=== PATIENT | female | born 1950 | race Caucasian/White ===

== ENCOUNTER → 2018-08-29 | Outpatient (CLI) | payer MEDICARE ==
[~2018-08-29] MED LIST: ACET-704 PO; ACET500T68 PO; CYCL10TA2 PO; DOCU-109 PO; IBUP-1027 PO; LEVO112T4 PO; PANT20TA2 PO; [UNRECOGNIZED DRUG - OTHER] PO
--- NOTE | 2018-08-29 13:49 | RAD ---
EXAM: Lumbar spine MRI without contrast. HISTORY: Lower back pain and left lower extremity radiculopathy. TECHNIQUE: Multiplanar, multisequence magnetic resonance imaging of the lumbar spine was performed without contrast. COMPARISON: None. FINDINGS: There is mild lumbar scoliosis. There is minimal grade 1 anterolisthesis of L3 on L4, measuring 2 mm. There is diffusely heterogeneous marrow signal intensity likely due to the combination of fatty marrow replacement and bone demineralization. There are few superimposed osseous hemangiomas. There is no acute or subacute fracture. There is no suspicious osseous lesion. The conus terminates at L1-L2. At L1-L2, there is no stenosis. At L2-L3, there is no stenosis. At L3-L4, there is a broad-based left foraminal to lateral disc protrusion and a right foraminal to lateral disc osteophyte complex superimposed on a disc bulge and right lateral predominant endplate osteophytosis. There is mild bilateral facet arthropathy. There is hypertrophy of ligamentum flavum. There is minimal grade 1 anterolisthesis. There is mild bilateral foraminal stenosis. There is mild central canal stenosis. At L4-L5, there is no stenosis. At L5-S1, there is no stenosis. IMPRESSION: 1. Degenerative change at L3-L4, resulting in mild bilateral foraminal and central canal stenosis. 2. Mild scoliosis and minimal grade 1 anterolisthesis of L3 on L4. Electronically signed by: Maribel Orozco MD (08/29/2018 1:46 PM) [facility]
== END | disposition home or self-care (01) ==
LOC: MRI 12:37
PROVIDERS: ATTEND Nurse Practitioner Family
DX: M47.816 Spondylosis without myelopathy or radiculopathy, lumbar region (principal); M48.061 Spinal stenosis, lumbar region without neurogenic claudication; M51.26 Other intervertebral disc displacement, lumbar region; M41.86 Other forms of scoliosis, lumbar region; M25.78 Osteophyte, vertebrae; D18.09 Hemangioma of other sites
CPT/HCPCS: 72148

== ENCOUNTER 2018-09-14 09:04 | Observation (INO) | payer MEDICARE ==
--- NOTE | 2018-09-13 15:29 | PREOP HP ---
DATE OF SERVICE: 09/14/2018. HISTORY OF PRESENT ILLNESS: The patient is a pleasant 67-year-old woman who is having difficulty with low back pain and pain, which radiates down her left anterior lateral thigh and leg. She also notices bilateral foot numbness, which she describes as a burning, shooting discomfort in addition to numbness. Her back and left leg pain began about 1-1/2 years ago. She rates her pain as a 4/10 generally. Standing or lying down increases her pain. Sitting in a firm chair helps her. She has had epidural steroid injections for this as well as physical therapy for 3 months in the spring. She relates that if she stands for any length of time or stands and walks, she develops more significant back pain on the left and pain, which radiates into her left hip and then down her left lateral thigh and leg. Sitting gives her virtual immediate relief. She has had difficulty at night when she lies down with back and left leg pain. PAST MEDICAL HISTORY: Cancer, cold sores and fever blisters, headaches or migraines, kidney stones, mitral valve prolapse, thyroid disease, tonsillitis, bleeding ulcer. PAST SURGICAL HISTORY: T and A, hysterectomy, bladder suspension, cholecystectomy, sinus surgery, kidney stones. FAMILY HISTORY: Cancer, diabetes, heart disease. SOCIAL HISTORY: Retired. . Exercises daily. Denies substance abuse. Drinks alcohol 1 or 2 per day. Drinks coffee, tea daily. ALLERGIES: TO SULFA AND MORPHINE. CURRENT MEDICATIONS: Levothyroxine, Advil, Tylenol, Flexeril. REVIEW OF SYSTEMS: A 12-point review of systems was obtained and is noncontributory except for that mentioned above. PHYSICAL EXAMINATION: NEUROSURGERY EXAMINATION: GENERAL APPEARANCE: Alert, pleasant, no acute distress. HEAD: Normocephalic and atraumatic. SKIN: Warm and dry. MUSCULOSKELETAL: Lumbar paraspinal muscle bulk is normal, restricted range of motion of lumbar spine, [id number] tenderness of the lower lumbar spine with palpation, normal range of motion of the lower extremities bilaterally. EXTREMITIES: No clubbing, cyanosis or edema. NEUROLOGIC: Alert and oriented x 3, normal recent and remote memory, strength 5/5 in bilateral lower extremities, sensory was intact to light touch in bilateral lower extremities. Reflexes were present and symmetric in lower extremities bilaterally except for absent ankle jerks, positive straight leg raising on the left with back and left leg pain relieved by Lasegue's maneuver, negative straight leg raising on the right, normal gait. IMAGING: I reviewed lumbar MRI scan. The principal abnormalities are at L3-L4 and there are small grade 1 anterolisthesis as well as central canal and bilateral foraminal narrowing. There is central and left-sided foraminal disc protrusion. ASSESSMENT/PLAN: The problems at L3-L4 are responsible for her back and left leg pain. At this point, my recommendation is that she consider laminectomy at this level for the stenosis and left-sided lumbar microdiskectomy to deal with the disc protrusion to see if this will help her. I did discuss this with her in detail. She would like to go ahead. We will make the arrangements. ARAM QUINN MD DR: ANNETTA/yahaira JOB#: [id number] / [id number] MICHELLE
[~2018-09-14] VITALS: Ht 167.6 cm; Wt 68.0 kg
[2018-09-14] VITALS (9 sets, daily range): BP systolic 110–132; BP diastolic 64–81
[~2018-09-14 09:04] MED LIST changes: -ACET-704 PO; +BACITRACIN 50,000 UNIT in IV NORMAL SALINE 1000ML BAG 1,000 ML IRR ONE; +BUPIVAC MPF-EPI 0.5%-1:200000 30 ML VIAL. ONE; -DOCU-109 PO; +GELATIN SPONGE SIZE 100. ONE; +IV RINGERS,LACTATED 1000ML 1,000 ML IV SCH; +KETOROLAC 60 MG/2 ML INJ FOR OR. ONE; +LIDOCAINE 1% PF 2 ML VIAL. ID PRN; +ONDANSETRON PF 4 MG/2 ML VIAL. IV PRN; +PROCHLORPERAZINE 10 MG/2 ML VIAL. IV PRN; +THROMBIN TOPICAL 20,000 UNIT SPRAY.SYRN KIT TP ONE; +fentaNYL PF VIAL 100 MCG/2 ML VIAL IV PRN
[2018-09-14] MEDS ORDERED: DEXAMETHASONE SOD PHOS 20 MG/5 ML VIAL. ONE (10:30)
[2018-09-14] MEDS ORDERED: ONDANSETRON PF 4 MG/2 ML VIAL. ONE (10:30)
[2018-09-14] MEDS ORDERED: REMIFENTANIL 2 MG VIAL. IV ONE (10:30)
[2018-09-14] MEDS ORDERED: PROPOFOL 20 ML IV ONE (10:30)
[2018-09-14] MEDS ORDERED: LIDOCAINE 2% PF 5 ML VIAL. ONE (10:30)
[2018-09-14] MEDS ORDERED: ROCURONIUM 50 MG/5 ML VIAL. ONE (10:31)
[2018-09-14] MEDS ORDERED: PROPOFOL 50 ML IV ONE ×2 (10:35→13:36)
[2018-09-14] MEDS ORDERED: MIDAZOLAM HCL/PF 2 MG/2 ML VIAL. ONE (11:40)
[2018-09-14] MEDS ORDERED: PHENYLEPHRINE in 0.9% NACL PF 1 MG/10 ML SYRINGE. IV ONE (12:37)
[2018-09-14] MEDS ORDERED: PHENYLEPHRINE 10 MG/ML VIAL. ONE (13:10)
[2018-09-14] MEDS ORDERED: NEOSTIGMINE METHYLSULFATE 5 MG/5 ML SYRINGE. ONE (13:54)
[2018-09-14] MEDS ORDERED: GLYCOPYRROLATE 1 MG/5 ML VIAL. ONE (13:54)
[2018-09-14] MEDS ORDERED: DESFLURANE > 120 MINUTES IH ONE (13:55)
[2018-09-14] MEDS: POTASSIUM CL 20MEQ D5-0.45NACL 1,000 ML IV SCH (14:27)
[2018-09-14] MEDS ORDERED: CYCLOBENZAPRINE 10 MG TABLET. PO PRN (14:30)
[2018-09-14] MEDS ORDERED: IBUPROFEN 400 MG TABLET. PO PRN (14:30)
[2018-09-14] MEDS ORDERED: ACETAMINOPHEN 325 MG TABLET. PO PRN (14:30)
[2018-09-14] MEDS ORDERED: HYDROcodone/APAP 5/325MG 1 TAB TABLET PO PRN (14:30)
[2018-09-14] MEDS ORDERED: fentaNYL PF VIAL 100 MCG/2 ML VIAL IV PRN (14:30)
[2018-09-14] MEDS ORDERED: NALOXONE 0.4 MG/ML VIAL. IV PRN (14:30)
[2018-09-14] MEDS ORDERED: MAGNESIUM HYDROXIDE 2,400 MG/30 ML ORAL.SUSP. PO PRN (14:30)
[2018-09-14] MEDS ORDERED: ONDANSETRON PF 4 MG/2 ML VIAL. IV PRN (14:30)
[2018-09-14] MEDS ORDERED: diphenhydrAMINE HCL 25 MG CAPSULE PO PRN (14:30)
[2018-09-14] MEDS ORDERED: CALCIUM CARBONATE 500 MG TAB.CHEW PO PRN (14:30)
[2018-09-14] MEDS ORDERED: 0.9 % SODIUM CHLORIDE 10 ML DISP.SYRIN. IV PRN (14:30)
[2018-09-14] MEDS ORDERED: MAG HYDROX/ALUMINUM HYD/SIMETH 30 ML ORAL.SUSP PO PRN (14:30)
[2018-09-14] MEDS ORDERED: ACETAMINOPHEN 1000 MG PO PRN (14:30)
--- NOTE | 2018-09-14 14:41 | OP ---
DATE OF SURGERY: 09/14/2018 PREOPERATIVE DIAGNOSES: Lumbar spinal stenosis, L3-L4 with left-sided bulging disc, L3-L4. POSTOPERATIVE DIAGNOSES: Lumbar spinal stenosis, L3-L4 with subligamentous disc herniation, left L3-L4. OPERATION PERFORMED: Hemilaminotomy/left direct laminectomy L3-L4 with lumbar microdiscectomy, left L3-L4. The operation was done with EMG monitoring, fluoroscopy, microscopic dissection. SURGEON: Dar Quinn M.D. DIRECTOR GEOPHYSICAL LABORATORY: CHARLEY Resendiz assisted with the surgery. She assisted with the exposure, the microdiscectomy and decompression, laminectomy and closure. OPERATIVE INDICATIONS: The patient is a pleasant 67-year-old woman who had developed intractable back and left leg pain. She was found to have the above-mentioned findings on imaging studies. She did fail conservative measures and I recommended lumbar microsurgery at this level. I spoke with her about the surgery, the risks, technique and expected postoperative course, and she wished to go ahead. DESCRIPTION OF PROCEDURE: Following general endotracheal anesthesia, the patient was positioned prone on the Shaji table. Lumbar region prepped and draped in standard fashion. JOSH hose and AV impulse boots were applied for DVT prophylaxis. The microscope was draped. Fluoroscopy was draped and brought into the field. Monitoring was established. Ancef 2 grams was given less than 1 hour prior to the initiation of the surgery. Using fluoroscopic guidance, an incision was made over the L3-L4 interspace. I dissected down through skin and subcutaneous tissue, reflected the paraspinal muscles and placed a Clarinda micro disc retractor. I brought in the high speed air drill, burred down a hemilaminotomy and then I trimmed away the thickened ligamentum flavum from medial to lateral and performed a generous partial foraminotomy. I then tilted the patient away and drilled across the base of spinous process across to the contralateral side and I removed the fatty tissue in the midline and performed a laminectomy. I then worked laterally and peeled away the thickened ligamentum flavum and carried my exposure laterally and peeled the ligamentum flavum away just lateral to the lateral edge of the dura. Working superiorly, there was an early takeoff of the L4 root and I could visualize this. Inferiorly, there was soft disc bulging and I incised the ligament annulus and there was subligamentous disc, which I have removed with micropituitary and then I entered into the disc space and performed discectomy with pituitary rongeurs. I worked medially and laterally and assured myself that the entire region was well decompressed. I did explore along the course of the L4 root with the [place] [place] [facility] and assured myself that the root was free.I removed the retractor and irrigated. I obtained perfect hemostasis in the muscle. I closed the wound in layers with absorbable suture. The skin was closed with 4.0 subcuticular stitch. The patient was awakened and taken to recovery room with normal strength in the lower extremities. I felt the surgery went very well. DAR QUINN MD DR: ANNETTA/yahaira JOB#: [id number] / [id number] MICHELLE
[2018-09-14] MEDS ORDERED: fentaNYL PF VIAL 100 MCG/2 ML VIAL ONE (14:45)
[2018-09-14] MEDS: fentaNYL PF VIAL 100 MCG/2 ML VIAL IV PRN ×4 (14:47→16:30)
[2018-09-14] MEDS ORDERED: PANTOPRAZOLE 40 MG TABLET.DR. PO PRN (16:00)
--- NOTE | 2018-09-14 16:30 | NUR ---
Rec'd from PACU per cart, transferred to bed, dressing to lumbar area clean, dry & intact, bilateral JOSH hose & NITA in place, IVF infusing into right dorsal hand, states discomfort level 6/10, ice pack to back for comfort, oriented to surroundings, family members at bedside, call light within reach
[2018-09-14] MEDS: HYDROcodone/APAP 5/325MG 1 TAB TABLET PO PRN ×2 (17:56→21:43)
--- NOTE | 2018-09-14 18:30 | NUR ---
Ambulated in hallway from room 450 to 456, tolerated well.
[2018-09-14] MEDS ORDERED: [UNRECOGNIZED DRUG - OTHER] PO SCH (21:00)
[2018-09-14] MEDS: METHOCARBAMOL 750 MG TABLET PO SCH (21:43)
[2018-09-14] MEDS: DOCUSATE SODIUM 100 MG CAPSULE. PO SCH (21:44)
[2018-09-15 03:00] VITALS: BP 111/66
[2018-09-15] MEDS: POTASSIUM CL 20MEQ D5-0.45NACL 1,000 ML IV SCH (03:47)
[2018-09-15 06:38] VITALS: BP 123/70
[2018-09-15] MEDS ORDERED: LEVOTHYROXINE 112 MCG TABLET PO SCH (07:30)
[2018-09-15] MEDS: METHOCARBAMOL 750 MG TABLET PO SCH (08:34)
[2018-09-15] MEDS: DOCUSATE SODIUM 100 MG CAPSULE. PO SCH (08:34)
[2018-09-15] MEDS ORDERED: DOCU-109 PO (10:01)
--- NOTE | 2018-09-15 10:02 | DISCH ---
DISCHARGE INSTRUCTIONS Condition on Discharge Condition on Discharge: Stable Activity After Discharge Activity Instructions for Disc: Activity as tolerated, Avoid exertion, Walk in house Other activity instructions: ambulation only exercise permitted; gradually increase time and distance Bathing Instructions: Shower-keep dressing dry, No Tub Bath until see Lifting Instructions after Dis: No heavy lifting, No pulling or pushing, Do not lift >10 pounds Exercise Instruction after Dis: Progress as tolerated Driving Instructions after Dis: No driving for 2 weeks Weight Bearing Status after Di: No restrictions, Full weight bearing, As tolerated Diet after Discharge Additional Diet Restrictions: resume home diet Diet Texture: Regular Swallowing Supervision: None needed Wound Incision Care Wound/Incision Care: Ice to area for comfort, Keep wound/cast CDI, Change dressing Other wound/incision instructi: may shower 48 hrs after surgery; NO direct water to incision or antibiotic Wound Care Equipment: Dressings Checks after Discharge DC Comment: increase fruits, vegetables attempt to have a BM every 2-3 days Contacting the DRIsidro after DC Call your doctor for: Concerns you may have Follow-Up Follow up with: call [phone] for a month after surgery with Dr. Quinn Follow Up With: primary md for incisional check Treatment/Equipment after DC Adaptive Equipment Issued: None ARAM QUINN MD Sep 15, 2018 10:02
[2018-09-15] MEDS ORDERED: ACET-704 PO (10:04)
[2018-09-15] MEDS ORDERED: ACETAMINOPHEN/CODEINE 300/30MG TABLET. PO ONE (10:45)
--- NOTE | 2018-09-15 11:45 | PDOC ---
PROGRESS NOTES Subjective Subjective POD #1 up ambulating with PT reports significant improvement in left leg pain Objective Objective Vital Signs Date Time Temp Pulse Resp B/P (MAP) Pulse Ox O2 Delivery O2 Flow Rate FiO2 09/15/18 10:07 Room Air 09/15/18 07:18 20 09/15/18 06:38 98.6 82 123/70 (87) 98 98.6 09/14/18 20:00 8.0 Intake and Output 09/15/18 07:00 Intake Total 2960 ml Output Total 1210 ml Balance 1750 ml Intake Oral 910 ml IV Total 2050 ml Output Urine Total 1200 ml Estimated Blood Loss 10 ml Physical Exam General: Alert, Oriented X3, Cooperative, No acute distress MUSCULOSKELETAL: Other (BROCK) Skin: Other (Dressing C,D,I, Flat) Plan Plan of Care ok to dc home she will f/u with PCP in 2 weeks for wound check Comment Review of Relevant I have reviewed the following items vu (where applicable) has been applied. Medications Current Medications Bacitracin 53772 unit/Sodium Chloride 1,000 ml @ 1,000 mls/hr 1X ONCE IRR Last administered on 09/14/18at 12:54; Start 09/14/18 at 06:00; Stop 09/14/18 at 06:59; Status DC Ondansetron HCl (Zofran) 4 mg PRN Q6HRS PRN IV NAUSEA/VOMITING; Start 09/14/18 at 07:00; Stop 09/14/18 at 17:19; Status DC Fentanyl Citrate (Fentanyl 2ml Vial) 25 mcg PRN Q5MIN PRN IV MILD PAIN Last administered on 09/14/18at 16:30; Start 09/14/18 at 07:00; Stop 09/14/18 at 17:19 ; Status DC Fentanyl Citrate (Fentanyl 2ml Vial) 50 mcg PRN Q5MIN PRN IV MODERATE TO SEVERE PAIN; Start 09/14/18 at 07:00; Stop 09/14/18 at 17:19; Status DC Ringer's Solution 1,000 ml @ 30 mls/hr Q24H IV Last administered on 09/14/18at 09:57; Start 09/14/18 at 07:00; Stop 09/14/18 at 17:19; Status DC Lidocaine HCl (Xylocaine-Mpf 1% 2ml Vial) 2 ml PRN 1X PRN ID PRIOR TO IV START ; Start 09/14/18 at 07:00; Stop 09/14/18 at 17:19; Status DC Prochlorperazine Edisylate (Compazine) 5 mg PACU PRN PRN IV NAUSEA, MRX1; Start 09/14/18 at 07:00; Stop 09/14/18 at 17:19; Status DC Cefazolin Sodium/ Dextrose 50 ml @ 100 mls/hr 1X PREOP PRN IV PRIOR TO PROCEDURE Last administered on 09/14/18at 12:27; Start 09/14/18 at 06:00; Stop at 18:00; Status DC Gelatin (Gelfoam Size 100) 1 each STK-MED ONCE .ROUTE Last administered on at 12:54; Start 09/14/18 at 06:22; Stop 09/14/18 at 07:22; Status DC Bupivacaine HCl/ Epinephrine Bitart (Sensorcain-Mpf Epi 0.5%-1:[id number]) 30 ml STK -MED ONCE .ROUTE Last administered on 09/14/18at 12:54; Start 09/14/18 at 06:22 ; Stop 09/14/18 at 07:23; Status DC Ketorolac Tromethamine (Toradol For Or Only) 60 mg STK-MED ONCE .ROUTE Last administered on 09/14/18at 12:54; Start 09/14/18 at 06:22; Stop 09/14/18 at 07:23 ; Status DC Thrombin 20,000 unit STK-MED ONCE TP Last administered on 09/14/18at 12:54; Start 09/14/18 at 06:22; Stop 09/14/18 at 07:23; Status DC Propofol 20 ml @ As Directed STK-MED ONCE IV ; Start 09/14/18 at 10:30; Stop at 10:31; Status DC Dexamethasone Sodium Phosphate (Decadron) 20 mg STK-MED ONCE .ROUTE ; Start at 10:30; Stop 09/14/18 at 10:31; Status DC Lidocaine HCl (Lidocaine Pf 2% Vial) 5 ml STK-MED ONCE .ROUTE ; Start 09/14/18 at 10:30; Stop 09/14/18 at 10:31; Status DC Ondansetron HCl (Zofran) 4 mg STK-MED ONCE .ROUTE ; Start 09/14/18 at 10:30; Stop 09/14/18 at 10:31; Status DC Remifentanil HCl (Ultiva) 2 mg STK-MED ONCE IV ; Start 09/14/18 at 10:30; Stop 09/14/18 at 10:31; Status DC Rocuronium Sperry (Zemuron) 50 mg STK-MED ONCE .ROUTE ; Start 09/14/18 at 10:31 ; Stop 09/14/18 at 10:32; Status DC Propofol 50 ml @ As Directed STK-MED ONCE IV ; Start 09/14/18 at 10:35; Stop at 10:36; Status DC Midazolam HCl (Versed) 2 mg STK-MED ONCE .ROUTE ; Start 09/14/18 at 11:40; Stop 09/14/18 at 11:41; Status DC Phenylephrine HCl (PHENYLEPHRINE in 0.9% NACL PF) 1 mg STK-MED ONCE IV ; Start 09/14/18 at 12:37; Stop 09/14/18 at 12:38; Status DC Phenylephrine HCl (Austen-Synephrine Inj) 10 mg STK-MED ONCE .ROUTE ; Start at 13:10; Stop 09/14/18 at 13:11; Status DC Propofol 50 ml @ As Directed STK-MED ONCE IV ; Start 09/14/18 at 13:36; Stop at 13:37; Status DC Glycopyrrolate (Robinul) 1 mg STK-MED ONCE .ROUTE ; Start 09/14/18 at 13:54; Stop 09/14/18 at 13:55; Status DC Neostigmine Methylsulfate (Neostigmine Methylsulfate) 5 mg STK-MED ONCE .ROUTE ; Start 09/14/18 at 13:54; Stop 09/14/18 at 13:55; Status DC Desflurane (Suprane) 90 ml STK-MED ONCE IH ; Start 09/14/18 at 13:55; Stop 09/14 at 13:56; Status DC Ibuprofen (Motrin) 400 mg PRN Q6HRS PRN PO INFLAMMATION; Start 09/14/18 at 14: 30 Levothyroxine Sodium (Synthroid) 112 mcg DAILYAC PO ; Start 09/15/18 at 07:30 Non-Formulary Medication (Acetaminophen ) 1,000 mg PRN DAILY PRN PO PAIN; Start 09/14/18 at 14:30; Status UNV Pantoprazole Sodium (Protonix) 40 mg PRN DAILY PRN PO GI SYMPTOMS/GERD Last administered on 09/15/18at 07:17; Start 09/14/18 at 16:00 Non-Formulary Medication ([biodentical hormone] ) 1 lozenge BID PO ; Start 09/14 at 21:00; Status UNV Fentanyl Citrate (Fentanyl 2ml Vial) 50 mcg PRN Q2HR PRN IV PAIN; Start at 14:30 Acetaminophen (Tylenol) 650 mg PRN Q6HRS PRN PO MILD PAIN / TEMP; Start at 14:30 Al Hydroxide/Mg Hydroxide (Mylanta Plus Xs) 30 ml PRN Q3HRS PRN PO HEARTBURN / GAS; Start 09/14/18 at 14:30 Calcium Carbonate/ Glycine (Tums) 500 mg PRN Q3HRS PRN PO INDIGESTION; Start at 14:30 Diphenhydramine HCl (Benadryl) 25 mg PRN Q6HRS PRN PO ITCHING; Start 09/14/18 at 14:30 Naloxone HCl (Narcan) 0.1 mg PRN Q2MIN PRN IV ADMIN; Start 09/14/18 at 14:30 Sodium Chloride (Normal Saline Flush) 3 ml QSHIFT PRN IV AFTER MEDS AND BLOOD DRAWS; Start 09/14/18 at 14:30 Potassium Chloride/Dextrose/ Sod Cl 1,000 ml @ 75 mls/hr [id number] IV ; Start at 14:27 Acetaminophen/ Hydrocodone Bitart (Lortab 5/325) 1 tab PRN Q4HRS PRN PO MILD PAIN Last administered on 09/14/18at 21:43; Start 09/14/18 at 14:30 Acetaminophen/ Hydrocodone Bitart (Lortab 5/325) 2 tab PRN Q4HRS PRN PO MODERATE PAIN, SEVERE PAIN Last administered on 09/15/18at 07:18; Start 09/14/18 at 14:30 Docusate Sodium (Colace) 100 mg BID PO Last administered on 09/15/18at 08:34; Start 09/14/18 at 21:00 Magnesium Hydroxide (Milk Of Magnesia) 2,400 mg PRN Q12HR PRN PO CONSTIPATION; Start 09/14/18 at 14:30 Ondansetron HCl (Zofran) 4 mg PRN Q6HRS PRN IV NAUESA, 1ST CHOICE; Start at 14:30 Cyclobenzaprine HCl (Flexeril) 10 mg PRN Q8HRS PRN PO MUSCLE SPASMS; Start at 14:30 Fentanyl Citrate (Fentanyl 2ml Vial) 100 mcg STK-MED ONCE .ROUTE ; Start at 14:45; Stop 09/14/18 at 15:16; Status DC Methocarbamol (Robaxin) 750 mg TID PO Last administered on 09/15/18at 08:34; Start 09/14/18 at 21:00 Acetaminophen/ Codeine Phosphate (Tylenol #3) 1 tab 1X ONCE PO Last administered on 09/15/18at 11:01; Start 09/15/18 at 10:45; Stop 09/15/18 at 10:48 ; Status DC Active Scripts Active Tylenol With Codeine #3 Tablet (Acetaminophen/Codeine Phosphate) 1 Each Tablet 1 Tab PO PRN Q6HRS PRN Colace (Docusate Sodium) 100 Mg Capsule 100 Mg PO BID Reported Protonix (Pantoprazole Sodium) 20 Mg Tablet.dr 20 Mg PO PRN DAILY PRN [biodentical hormone] 1 Lozenge PO BID Ibuprofen 400 Mg Tablet 400 Mg PO PRN Q6HRS PRN Acetaminophen 500 Mg Tablet 1,000 Mg PO PRN DAILY PRN Cyclobenzaprine Hcl 10 Mg Tablet 10 Mg PO PRN QHS PRN Levothyroxine Sodium 112 Mcg Tablet 112 Mcg PO DAILYAC Vitals/I & O Vital Sign - Last 24 Hours 09/14/18 09/14/18 09/14/18 09/14/18 14:15 14:15 14:30 14:45 Temp 97.8 97.8 Pulse 88 77 78 Resp 18 16 16 B/P (MAP) 122/57 122/60 127/60 Pulse Ox 100 100 98 O2 Delivery Simple Mask Mask Simple Mask Room Air O2 Flow Rate 8 8 8 09/14/18 09/14/18 09/14/18 09/14/18 14:47 15:00 15:00 15:15 Temp 98.2 97.8 98.2 97.8 Pulse 87 88 Resp 18 18 18 18 B/P (MAP) 126/62 124/61 Pulse Ox 100 97 97 98 O2 Delivery Room Air Room Air Room Air Room Air 09/14/18 09/14/18 09/14/18 09/14/18 15:30 15:45 16:00 16:02 Pulse 89 90 90 Resp 18 16 14 14 B/P (MAP) 116/64 127/63 120/67 Pulse Ox 98 96 94 96 O2 Delivery Room Air Room Air Room Air Room Air 09/14/18 09/14/18 09/14/18 09/14/18 16:15 16:30 16:45 17:00 Temp 98.8 98.5 98.8 98.5 Pulse 90 90 93 Resp 16 16 18 19 B/P (MAP) 114/55 113/71 (85) 113/64 (80) Pulse Ox 95 95 94 96 O2 Delivery Room Air Room Air Room Air Room Air 09/14/18 09/14/18 09/14/18 09/14/18 17:12 17:15 17:30 17:56 Temp 97.4 98.7 97.4 98.7 Pulse 97 106 Resp 18 18 B/P (MAP) 127/81 (96) 132/78 (96) Pulse Ox 96 96 O2 Delivery Room Air Room Air Room Air Room Air 09/14/18 09/14/18 09/14/18 09/14/18 18:00 18:29 19:30 20:00 Temp 98.5 98.6 98.5 98.6 Pulse 92 98 98 Resp 18 19 22 B/P (MAP) 123/71 (88) 120/66 (84) 118/75 (89) Pulse Ox 95 100 100 O2 Delivery Room Air Room Air Room Air Room Air O2 Flow Rate 8.0 09/14/18 09/14/18 09/14/18 09/14/18 20:30 21:43 22:45 22:45 Temp 97.8 97.8 Pulse 96 89 Resp 20 18 20 20 B/P (MAP) 120/75 (90) 110/65 (80) Pulse Ox 96 97 97 O2 Delivery Room Air Room Air Room Air Room Air 09/15/18 09/15/18 09/15/18 09/15/18 03:00 06:38 07:18 10:07 Temp 99.7 98.6 99.7 98.6 Pulse 75 82 Resp 20 20 20 B/P (MAP) 111/66 (81) 123/70 (87) Pulse Ox 96 98 O2 Delivery Room Air Room Air Room Air Room Air Intake and Output 09/14/18 09/14/18 09/15/18 15:00 23:00 07:00 Intake Total 1150 ml 1410 ml 400 ml Output Total 10 ml 1200 ml Balance 1140 ml 210 ml 400 ml DUNCAN BRISENO [employer] Sep 15, 2018 11:45
--- NOTE | 2018-09-18 16:07 | PATHOLOGY ---
[facility] Accession Number: [id number] . 01 Material submitted: . LUMBAR DISC AND DECOMPRESSION . 01 Clinical history: . Lumbar stenosis and neurogenic claudication . 02 Diagnosis: Segments of fibrocartilaginous tissue and bone, lumbar disc and decompression: - Degenerative changes of fibrocartilaginous tissue. . (JPM:mml; 09/18/2018) QLM/09/18/2018 . 02 Comment: There is no evidence of an acute inflammatory process or malignancy. . (JPM:mml; 09/18/2018) . 02 Electronically signed: . Bishnu Bocanegra MD, Pathologist NPI- [id number] . 01 Gross description: . Received in formalin labeled "Martinez Nino, lumbar disc and decompression," are several pieces of glistening, fibrous tissue measuring 4.5 x 2.5 x 0.8 cm in aggregate dimensions, containing small fragments of possible bone. The tissue is submitted representatively in cassette A1, following decalcification. (TSD; 09/14/2018) TOB/TOB . 02 Pathologist provided ICD-10: M51.36 . 02 CPT . 935946, 931575 Specimen Comment: A courtesy copy of this report has been sent to Specimen Comment: [phone], . Specimen Comment: Report sent to / DR CALLAHAN Performed at: 01 [facility] [address], [place] [id number] MD Dandy Pickering MD Phone: [phone] Performed at: 02 [facility] [address] [place], [place] [id number] MD Bishnu Bocanegra MD Phone: [phone]
== END 2018-09-15 11:30 | disposition home or self-care (01) ==
LOC: SURG 09:04 → 4 SOUTHEST 15:10
PROVIDERS: ADMIT Neurological Surgery; ATTEND Neurological Surgery
DX: M48.062 Spinal stenosis, lumbar region with neurogenic claudication (principal); Z83.3 Family history of diabetes mellitus; Z87.442 Personal history of urinary calculi; Z90.710 Acquired absence of both cervix and uterus
CPT/HCPCS: 63047; 63048; 76000; 97162; 97530; A7015; G0378; G0379; G8978; G8979; G8980; J1100; J1885; J2001; J2250; J2370; J2405; J2704; J2710; J3010; J3490; J7030; J7120; 88304; 88311